=== PATIENT | male | born 1945 | race Caucasian/White ===

== ENCOUNTER 2017-08-10 12:04 | Outpatient (CLI) | payer OTHER, MEDICARE ==
[2017-08-10 13:50] LABS: #Eosinphils 0.1 thou/uL (0.0-0.7); #Lymphocytes 1.9 thou/uL (1.20-3.40); #Monocytes 0.5 thou/uL (0.11-0.59); #Neutrophils 3.1 thou/uL (1.40-6.50); %Basophils 0.7 % (0.0-1.0); %Eosinophils 2.4 % (0.0-10.0); %Lymphocytes 32.9 % (21.0-51.0); Bilirubin Negative (Negative); Blood, Urine Negative (Negative); Clarity CLOUDY (Clear); Glucose, Urine (Dipstick) Negative (Negative); Leukocyte Negative (Negative); Mean Corpuscular HGB CONC 35.7 g/dL (32.0-36.0); Mean Corpuscular Hemoglobin 33.1 pg (27.0-31.0); Mean Corpuscular Volume 92.6 fl (80.0-94.0); Mean Platelet Volume 7.2 fL (7.4-10.4); Nitrite Negative (Negative); Platelet Count 202 thou/uL (130-400); Protein, Urine (Dipstick) Negative (Neg-Trace); RBC Distribution Width 12.4 % (11.5-14.5); Red Blood Cell (RBC) Count 4.55 mill/uL (4.70-6.10); Urobilinogen 0.2 mg/dL (0.2-1.0); White Blood Cell (WBC) Count 5.6 thou/uL (4.8-10.8)
[2017-08-10 13:53] LABS: Bacteria/HPF None Seen HPF (None Seen); Hyaline Casts/LPF 0-3 HYALINE CAST LPF (0-3 Hyaline); Pathc Cast-AUWi Flag 0.29 (0-2.49); RBC/HPF 0-3 HPF (0-3); Squamous Epithelial None Seen HPF (0-3); WBC/HPF None Seen HPF (0-3)
[2017-08-10 13:56] LABS: Prothrombin Time 13.8 SEC (12.0-14.7)
[2017-08-10 14:23] LABS: Anion Gap 12 mmol/L (10-20); BUN (Urea Nitrogen) 18 mg/dL (8.4-25.7); Calc. Creatinine Clearance 0 mL/min (70-130); Calcium 9.7 mg/dL (7.8-10.44); Carbon Dioxide 26 mmol/L (23-31); Chloride 104 mmol/L (98-107); Estimated GFR-MDRD 87; Glucose 126 mg/dL (80-115); Potassium 4.1 mmol/L (3.5-5.1); Sodium 138 mmol/L (136-145)
== END 2017-08-10 12:05 | disposition home or self-care (01) ==
LOC: LABBT 12:04
PROVIDERS: ATTEND Orthopaedic Surgery
DX: Z01.818 Encounter for other preprocedural examination (principal); M17.11 Unilateral primary osteoarthritis, right knee
CPT/HCPCS: 80048; 81001; 85025; 85610; 87081; 93005; 93010

== ENCOUNTER 2017-08-10 12:30 | Inpatient (IN) | payer OTHER, MEDICARE ==
[2017-08-23] MEDS ORDERED: CEFAZOLIN/Water 2 GM/20 ML SYRINGE ONE (05:59)
[2017-08-23] MEDS ORDERED: Sodium Chloride 0.9% 100 ML ONE (05:59)
[2017-08-23] MEDS ORDERED: Midazolam HCl 2 mg/2 ml Vial ONE (06:17)
[2017-08-23] MEDS ORDERED: Fentanyl 100 MCG/2 ML VIAL ONE ×2 (06:17→09:16)
[2017-08-23] MEDS ORDERED: Bupivacaine 0.25% HCL 30 ML VIAL ONE (06:48)
[2017-08-23] MEDS ORDERED: Ropivacaine 0.5% HCl/PF (150 MG/30 ML VIAL) ONE (06:48)
[2017-08-23] MEDS ORDERED: Ondansetron HCl/PF 4 MG/2 ML Vial IVP PRN ×4 (07:09→09:10)
[2017-08-23] MEDS ORDERED: Promethazine HCl 25 MG/ML VIAL IM PRN ×4 (07:09→09:10)
[2017-08-23] MEDS ORDERED: Bupivacaine 0.5% 50 ML in Sodium Chloride 0.9% 50 ML NERVE BLCK SCH (07:09)
[2017-08-23] MEDS ORDERED: traMADol HCl 50 MG TAB PO PRN ×3 (07:09→09:10)
[2017-08-23] MEDS ORDERED: Zolpidem Tartrate 5 MG TAB PO PRN ×2 (07:09→09:10)
[2017-08-23] MEDS ORDERED: Fentanyl 100 MCG/2 ML VIAL IV PRN (07:09)
[2017-08-23] MEDS ORDERED: HYDROcodone/Acetaminophen 10/325 mg Tablet PO PRN ×2 (07:09)
[2017-08-23] MEDS ORDERED: Promethazine HCl 25 MG/ML VIAL SLOW IVP PRN ×2 (07:41→09:02)
[2017-08-23] MEDS ORDERED: Bupivacaine HCl 0.5%/Epinephrine 1:200,000/PF 30 ml Vial ONE (07:56)
[2017-08-23] MEDS ORDERED: Acetaminophen 325 MG TAB PO PRN (09:10)
[2017-08-23] MEDS ORDERED: diphenhydrAMINE 25 MG CAP PO PRN (09:10)
[2017-08-23] MEDS ORDERED: Tranexamic Acid 1,000 MG in Sodium Chloride 0.9% 100 ML IVPB SCH (09:15)
--- NOTE | 2017-08-23 09:33 | OP ---
DATE OF PROCEDURE: 08/23/2017. PREOPERATIVE DIAGNOSIS: Right knee osteoarthrosis. POSTOPERATIVE DIAGNOSIS: Right knee osteoarthrosis. PROCEDURE PERFORMED: Right total knee replacement using [employer] pinless navigation. SURGEON: Dandre Goodrich M.D. TIRE RECAPPING MACHINE OPERATOR: Burt Fowler PA-C. BLOOD LOSS: Minimal. COMPLICATIONS: None. ANESTHESIA: He had a general anesthetic as well as a preoperative block. IMPLANTS: To the right knee is [employer] total knee system. The femur was a size 6 cruciate retaining. The tibial baseplate was a size 5 universal tibial baseplate. We used a 5 x 9 mm CS X3 tibial poly and an asymmetric 29 x 9 X3 patella. CONDITION: He did go to the recovery room in stable condition. INDICATIONS: A 71-year-old male who comes in complaining of right knee pain that has not been respon sive to nonoperative treatment. At this time, he opted to have surgery. PROCEDURE IN DETAIL: After all appropriate consent forms were explained and signed, the patient was taken back to the Operating Room and at this time was given general anesthetic. Once the level of an esthesia was appropriate, a well-padded tourniquet was placed on the right leg and the leg was then p repped and draped in standard surgical fashion. The limb was exsanguinated and tourniquet taken up t o 300 mmHg. Midline incision was made with a 10 blade down through the skin and subcutaneous tissue. Bovie electrocautery was used to coagulate any brisk venous bleeding. A new blade was used to make a medial parapatellar arthrotomy. Small subperiosteal release was performed medially and excess fat pad was removed. The knee was flexed up to gain access to the femur. The femur was navigated and d istal femoral resection was made. Epicondylar access was used to align our sizing jig and this was p inned in place. We sized our femur to be a size 6 cruciate retaining, 4:1 cutting block was applied and pinned. Anterior and posterior chamfer cuts were then made. We navigated out our proximal tibia and made our proximal tibial resection. Spreaders were used to remove any posterior osteophytes off the back of the femur as well as remaining meniscal tissue. A long alignment jl was then used to a chieve correct rotation of our tibial baseplate and a size 5 universal tibial baseplate was chosen. This was pinned in place. We trialed the polyethylene and a 5 x 9 mm CS X3 tibial polyethylene gave us full extension and good stability throughout range of motion. Two towel clips and a saw were used to cut our patella. Three lug nuts were drilled and asymmetric 29 x 9 X3 patella was trialed which sat nicely in the trochlear groove. We then drilled our femur and punched our tibia. All components were removed. The knee was thoroughly irrigated and dried. Cement was mixed into the cement gun on the back table. Components were then placed. The knee was held out in full extension until the ngozi ent had dried. All excess bone cement was removed. Multiple #2 Vicryl stitches as well as a Quill w as used to close our extensor mechanism. 0 Quill followed by a running Monoderm was then used to arron se the skin. Surgicel glue was then used on the skin. Once this had dried, soft tissue dressing was applied to the limb, tourniquet was let down, and the toes pinked up nicely. The patient was then a wakened and taken to the Recovery Room in stable condition. All counts were correct at the end of e case. The patient did receive preoperative IV antibiotics. The patient was injected with Exparel for postoperative pain relief.
[2017-08-23] MEDS ORDERED: Ketorolac Tromethamine 30 MG/ML VIAL ONE (10:21)
[2017-08-23] MEDS ORDERED: Dexamethasone 20 MG/5 ML VIAL ONE (10:52)
[2017-08-23] MEDS ORDERED: Ondansetron HCl/PF 4 MG/2 ML Vial ONE (10:52)
[2017-08-23] MEDS ORDERED: PHENYLEPHRINE-NS 100 MCG/ML 10 ML SYRINGE ONE (10:52)
[2017-08-23] MEDS ORDERED: PROPOFOL 200 MG/20 ML VIAL ONE (10:52)
[2017-08-23] MEDS ORDERED: Ketorolac Tromethamine 30 MG/ML VIAL IVP SCH (12:00)
[2017-08-23] MEDS: Sodium Chloride 0.9% 1,000 ML IV SCH ×2 (12:15→17:23)
[2017-08-23] MEDS ORDERED: Tamsulosin HCl 0.4 MG CAP PO SCH (14:30)
[2017-08-23] MEDS: Ketorolac Tromethamine 30 MG/ML VIAL IVP SCH ×2 (14:34→20:00)
--- NOTE | 2017-08-23 14:43 | PDOC.PN ---
- Subjective Encounter Start Date: 08/23/17 Encounter Start Time: 13:00 Subjective: no sob or chest pain -: has trouble passing urine -: this has happened before and he has taken flomax - Objective MAR Reviewed: Yes Vital Signs & Weight: Vital Signs (12 hours) Temp Pulse Resp BP Pulse Ox 08/23/17 11:44 98.1 F 75 22 H 100 08/23/17 10:45 98.1 F 75 22 H 156/89 H 100 Weight Weight 155 lb Phys Exam - Physical Examination HEENT: PERRLA, moist MMs Neck: no JVD, supple Respiratory: no wheezing, no rales Cardiovascular: RRR, no significant murmur Gastrointestinal: soft, non-tender, positive bowel sounds Musculoskeletal: pulses present right knee in dressing Neurological: non-focal, moves all 4 limbs Psychiatric: normal affect, A&O x 3 Dx/Plan (1) Status post total knee replacement, right Code(s): Z96.651 - PRESENCE OF RIGHT ARTIFICIAL KNEE JOINT Status: Acute (2) BPH (benign prostatic hyperplasia) Code(s): N40.0 - BENIGN PROSTATIC HYPERPLASIA WITHOUT LOWER URINRY TRACT SYMP Status: Chronic Qualifiers: Lower urinary tract symptom presence: symptoms present Lower urinary tract symptom detail: post-void dribbling Qualified Code(s): N40.1 - Benign prostatic hyperplasia with lower urinary tract symptoms; N39.43 - Post-void dribbling; N39.43 - Post-void dribbling - Plan add flomax bid, needs outpt urology appt -: to continue asp bid for dvt prophylaxis -: oral iron, labs in am -: marcaine nerve block, fentanyl and toradol prn -: will f/u * . Review of Systems - Medications/Allergies Allergies/Adverse Reactions: Allergies Allergy/AdvReac Type Severity Reaction Status Date / Time No Known Allergies Allergy Unverified 08/10/17 12:27 Medications: Current Medications Acetaminophen (Tylenol) 650 mg PO Q4H PRN PRN Reason: CAB[place]ERO/ T > 101F; Mild Pain (1-3) Hydrocodone Bitart/Acetaminophen ([place] 10/325) 1 tab PO Q4H PRN PRN Reason: Pain (1-3) Hydrocodone Bitart/Acetaminophen ([place] 10/325) 2 tab PO Q4H PRN PRN Reason: PAIN (4-6) Aspirin (Ecotrin) 81 mg PO BID [facility] Calcium/Vitamin D (Caltrate 600 + Vit D) 1 tab PO DAILY [facility] Cefazolin Sodium (Ancef) 2 gm SLOW IVP 0800,1600,2359 [facility] Stop: 08/24/17 00:00 Diphenhydramine HCl (Benadryl) 25 mg PO Q6H PRN PRN Reason: Itching Fentanyl (Sublimaze) 50 mcg IV Q1H PRN PRN Reason: BREAKTHROUGH PAIN Ferrous Gluconate (Fergon) 324 mg PO BID[facility] Bupivacaine HCl 50 ml/ Sodium (Chloride) 100 mls @ 0 mls/hr NERVE BLCK INF [facility] PRN Reason: As Directed Sodium Chloride (Normal Saline 0.9%) 1,000 mls @ 100 mls/hr IV .Q10H [facility] Last Admin: 08/23/17 12:15 Dose: Not Given Vancomycin HCl 1.5 gm/ Sodium (Chloride) 300 mls @ 200 mls/hr IVPB 2000 [facility] Stop: 08/23/17 21:29 Iron/Minerals/Multivitamins (Theragran M) 1 tab PO DAILY [facility] Ketorolac Tromethamine (Toradol) 15 mg IVP 0300,0900,1500,2100 [facility] Stop: 08/25/17 09:01 Last Admin: 08/23/17 14:34 Dose: 15 mg Ondansetron HCl (Zofran) 4 mg IVP Q6H PRN PRN Reason: Nausea/Vomiting Pantoprazole Sodium (Protonix) 40 mg PO DAILY [facility] Promethazine HCl (Phenergan) 12.5 mg IM Q4H PRN PRN Reason: Nausea/Vomiting Senna/Docusate Sodium (Senokot S) 2 tab PO BID [facility] Sodium Chloride (Flush - Normal Saline) 10 ml IVF Q12HR [facility] Last Admin: 08/23/17 12:15 Dose: Not Given Sodium Chloride (Flush - Normal Saline) 10 ml IVF PRN PRN PRN Reason: Saline Flush Tamsulosin HCl (Flomax) 0.4 mg PO NOW [facility] Stop: 08/23/17 16:00 Last Admin: 08/23/17 14:34 Dose: 0.4 mg Tamsulosin HCl (Flomax) 0.4 mg PO DAILY [facility] Tramadol HCl (Ultram) 50 mg PO Q6H PRN PRN Reason: Mild Pain (1-3) Tramadol HCl (Ultram) 100 mg PO Q6H PRN PRN Reason: Moderate Pain 4-6 Zolpidem Tartrate (Ambien) 5 mg PO HSPRN PRN PRN Reason: Insomnia
[2017-08-23] MEDS: CEFAZOLIN/Water 2 GM/20 ML SYRINGE SLOW IVP SCH (17:18)
[2017-08-23] MEDS ORDERED: Vancomycin HCl 1.5 GM in Sodium Chloride 0.9% 250 ML 300 ML IVPB SCH (20:00)
[2017-08-23] MEDS: Aspirin 81 mg Enteric Coated Tablet PO SCH (20:00)
[2017-08-24] MEDS: CEFAZOLIN/Water 2 GM/20 ML SYRINGE SLOW IVP SCH (00:26)
[2017-08-24] MEDS: Ketorolac Tromethamine 30 MG/ML VIAL IVP SCH ×3 (03:45→15:10)
[2017-08-24] MEDS: Sodium Chloride 0.9% 1,000 ML IV SCH ×2 (03:52→15:20)
[2017-08-24 04:28] LABS: Hemoglobin 11.7 g/dL (14.0-18.0); Mean Corpuscular HGB CONC 33.7 g/dL (32.0-36.0); Mean Corpuscular Hemoglobin 31.4 pg (27.0-31.0); Mean Corpuscular Volume 93.1 fl (80.0-94.0); Mean Platelet Volume 7.3 fL (7.4-10.4); Platelet Count 169 thou/uL (130-400); RBC Distribution Width 12.4 % (11.5-14.5); Red Blood Cell (RBC) Count 3.71 mill/uL (4.70-6.10); White Blood Cell (WBC) Count 11.3 thou/uL (4.8-10.8)
[2017-08-24 04:49] LABS: Anion Gap 10 mmol/L (10-20); BUN (Urea Nitrogen) 22 mg/dL (8.4-25.7); Calc. Creatinine Clearance 91 mL/min (70-130); Calcium 8.3 mg/dL (7.8-10.44); Carbon Dioxide 23 mmol/L (23-31); Chloride 111 mmol/L (98-107); Estimated GFR-MDRD Greater than 90; Glucose 117 mg/dL (80-115); Potassium 3.7 mmol/L (3.5-5.1); Sodium 140 mmol/L (136-145)
[2017-08-24] MEDS: Aspirin 81 mg Enteric Coated Tablet PO SCH (07:49)
[2017-08-24] MEDS ORDERED: Ferrous Gluconate 324 MG TAB PO SCH (08:00)
[2017-08-24 08:54] VITALS: TEMP 97.7
[2017-08-24] MEDS ORDERED: Tamsulosin HCl 0.4 MG CAP PO SCH (09:00)
[2017-08-24] MEDS ORDERED: Calcium Carbonate + Vit D 1 TAB PO SCH (09:00)
[2017-08-24] MEDS ORDERED: Multivitamin W/ Minerals 1 TAB PO SCH (09:00)
[2017-08-24] MEDS ORDERED: Senokot S 8.6-50 MG TAB PO SCH (09:00)
[2017-08-24 10:38] VITALS: BMI 21.7
--- NOTE | 2017-08-24 11:30 | PDOC.PN ---
- Subjective Encounter Start Date: 08/24/17 Encounter Start Time: 08:20 Subjective: no sob -: has pickens -: pain is better in the knee - Objective MAR Reviewed: Yes Vital Signs & Weight: Vital Signs (12 hours) Temp Pulse Resp BP BP BP Pulse Ox 08/24/17 09:53 96/62 08/24/17 08:52 97.7 F 76 20 89/50 L 95 08/24/17 08:00 98.1 F 76 16 96 08/24/17 03:54 98.1 F 76 16 93/54 L 96 08/24/17 00:47 98.6 F 76 17 93/50 L 95 Weight Admit Weight 156 lb Weight 156 lb I&O: 08/23/17 08/24/17 08/25/17 06:59 06:59 06:59 Intake Total 1440 Output Total 400 Balance 1040 Result Diagrams: 08/24/17 03:27 08/24/17 03:27 Phys Exam - Physical Examination HEENT: PERRLA, moist MMs Neck: no JVD, supple Respiratory: no wheezing, no rales Cardiovascular: RRR, no significant murmur Gastrointestinal: soft, non-tender, positive bowel sounds Musculoskeletal: pulses present Neurological: non-focal, moves all 4 limbs Psychiatric: normal affect, A&O x 3 Dx/Plan (1) Status post total knee replacement, right Code(s): Z96.651 - PRESENCE OF RIGHT ARTIFICIAL KNEE JOINT Status: Acute (2) BPH (benign prostatic hyperplasia) Code(s): N40.0 - BENIGN PROSTATIC HYPERPLASIA WITHOUT LOWER URINRY TRACT SYMP Status: Chronic Qualifiers: Lower urinary tract symptom presence: symptoms present Lower urinary tract symptom detail: post-void dribbling Qualified Code(s): N40.1 - Benign prostatic hyperplasia with lower urinary tract symptoms; N39.43 - Post-void dribbling; N39.43 - Post-void dribbling - Plan remove pickens, continue flomax -: dc plan per ortho advice -: has amb 350ft with rw -: hemostable -: needs outpt urology appt * . Review of Systems - Medications/Allergies Allergies/Adverse Reactions: Allergies Allergy/AdvReac Type Severity Reaction Status Date / Time No Known Allergies Allergy Unverified 08/10/17 12:27 Medications: Current Medications Acetaminophen (Tylenol) 650 mg PO Q4H PRN PRN Reason: CABALLERO/ T > 101F; Mild Pain (1-3) Hydrocodone Bitart/Acetaminophen ([place] 10/325) 1 tab PO Q4H PRN PRN Reason: Pain (1-3) Hydrocodone Bitart/Acetaminophen ([place] 10/325) 2 tab PO Q4H PRN PRN Reason: PAIN (4-6) Aspirin (Ecotrin) 81 mg PO BID [facility] Last Admin: 08/24/17 07:49 Dose: 81 mg Calcium/Vitamin D (Caltrate 600 + Vit D) 1 tab PO DAILY [facility] Last Admin: 08/24/17 07:50 Dose: 1 tab Diphenhydramine HCl (Benadryl) 25 mg PO Q6H PRN PRN Reason: Itching Fentanyl (Sublimaze) 50 mcg IV Q1H PRN PRN Reason: BREAKTHROUGH PAIN Ferrous Gluconate (Fergon) 324 mg PO BID[facility] Last Admin: 08/24/17 07:49 Dose: 324 mg Bupivacaine HCl 50 ml/ Sodium (Chloride) 100 mls @ 0 mls/hr NERVE BLCK INF [facility] PRN Reason: As Directed Last Admin: 08/23/17 22:06 Dose: 100 mls Sodium Chloride (Normal Saline 0.9%) 1,000 mls @ 100 mls/hr IV .Q10H [facility] Last Admin: 08/24/17 03:52 Dose: 1,000 mls Iron/Minerals/Multivitamins (Theragran M) 1 tab PO DAILY [facility] Last Admin: 08/24/17 07:51 Dose: 1 tab Ketorolac Tromethamine (Toradol) 15 mg IVP 0300,0900,1500,2100 [facility] Stop: 08/25/17 09:01 Last Admin: 08/24/17 07:52 Dose: 15 mg Ondansetron HCl (Zofran) 4 mg IVP Q6H PRN PRN Reason: Nausea/Vomiting Pantoprazole Sodium (Protonix) 40 mg PO DAILY [facility] Last Admin: 08/24/17 07:51 Dose: 40 mg Promethazine HCl (Phenergan) 12.5 mg IM Q4H PRN PRN Reason: Nausea/Vomiting Senna/Docusate Sodium (Senokot S) 2 tab PO BID [facility] Last Admin: 08/24/17 07:51 Dose: 2 tab Sodium Chloride (Flush - Normal Saline) 10 ml IVF Q12HR [facility] Last Admin: 08/24/17 08:27 Dose: Not Given Sodium Chloride (Flush - Normal Saline) 10 ml IVF PRN PRN PRN Reason: Saline Flush Tamsulosin HCl (Flomax) 0.4 mg PO DAILY [facility] Last Admin: 08/24/17 07:51 Dose: 0.4 mg Tramadol HCl (Ultram) 50 mg PO Q6H PRN PRN Reason: Mild Pain (1-3) Tramadol HCl (Ultram) 100 mg PO Q6H PRN PRN Reason: Moderate Pain 4-6 Zolpidem Tartrate (Ambien) 5 mg PO HSPRN PRN PRN Reason: Insomnia
[2017-08-24] MEDS ORDERED: Ropivacaine 0.2% 550 ML 550 ML NERVE BLCK SCH (11:41)
[2017-08-24 16:41] VITALS: BP 96/56
--- NOTE | 2017-08-25 02:18 | DIS ---
DATE OF ADMISSION: 08/23/2017 DATE OF DISCHARGE: 08/24/2017 DISCHARGE DISPOSITION: To home. PRIMARY DISCHARGE DIAGNOSES: Status post right total knee replacement, benign prostatic hypertrophy. PROCEDURES DONE DURING HOSPITALIZATION: The patient has had a right total knee replacement done by Ashley Goodrich on 08/23/2017. Postop H and H 11 and 34, platelet count 169,000, BUN 22, creatinine 0.7. DISCHARGE MEDICATIONS: Aspirin 81 mg p.o. twice daily for DVT prophylaxis post-knee replacement, Siva max 0.4 mg daily. ALLERGIES: No known drug allergies. DISCHARGE PLAN: Patient is to follow up with Dr. Goodrich as advised and primary care physician in 1 wee k. BRIEF COURSE DURING HOSPITALIZATION: Patient initially got admitted on the for elective right t otal knee replacement. He has had this done by Dr. Goodrich. Postop [facility] physicians were consulted for comanagement of medical issues. The patient has had some urinary retention with history of benign p rostatic hypertrophy. He has not had a chance to follow up with the urologist on the outside. He wa s placed on Flomax and had a Ambriz catheter put in postop. Likely he will go home without a Ambriz ca theter after bladder training and removal. He needs to continue Flomax and follow up with outpatient urology. He is otherwise hemodynamically stable and has ambulated nearly 350 feet with physical the rapy postop. Please see a [id number].
== END 2017-08-24 16:39 | disposition home or self-care (01) | DRG 470 ==
LOC: SJJU 08-23 05:35
PROVIDERS: ADMIT Orthopaedic Surgery; ATTEND Orthopaedic Surgery
PROC: 0SRC0J9 Replacement of Right Knee Joint with Synthetic Substitute, Cemented, Open Approach (ICD-10-PCS; principal; 2017-08-23)
DX: M17.11 Unilateral primary osteoarthritis, right knee (principal); N40.1 Benign prostatic hyperplasia with lower urinary tract symptoms; N39.43 Post-void dribbling
CPT/HCPCS: 36415; 80048; 85027; A4216; A4306; C1713; C1776; G8978-GP-CL; G8979-GP-CJ; J0670; J1100; J1885; J2250; J2405; J2704; J2795; J3010; J3370; J3490; J7050; S0020

== ENCOUNTER 2017-08-17 10:51 | Outpatient (CLI) | payer OTHER | END 2017-08-17 10:52 | disposition home or self-care (01) | LOC: LABBT 10:51 | PROVIDERS: ATTEND Orthopaedic Surgery | DX: Z01.818 Encounter for other preprocedural examination (principal); M17.11 Unilateral primary osteoarthritis, right knee | CPT/HCPCS: 86850; 86900; 86901 ==

== ENCOUNTER 2018-07-26 12:32 | Outpatient (CLI) | payer OTHER ==
--- NOTE | 2018-07-26 14:28 | RAD ---
SUPINE ABDOMEN: 07/26/18 HISTORY: Kidney stones. Bladder stone. No comparison. Bowel content obscure both kidneys. There are small calcifications overlying both renal outlines cons istent with numerous bilateral renal calculi. No definite calcification overlying the bladder, althou gh prominent stool in the rectum obscures detail. Bowel gas pattern unremarkable. IMPRESSION: Evidence of numerous small bilateral renal calculi. POS: OFF
--- NOTE | 2018-07-26 14:30 | ULT ---
RENAL ULTRASOUND: 07/26/18 INDICATIONS: Bladder stone, kidney stones. Right kidney measures 9.4 cm in length. Left kidney measures 11.9 cm in length. No evidence of hydronephrosis. There are echogenic foci seen in both kidneys consistent with multiple bilateral renal calculi. This corresponds to plain film findings. Urinary bladder is mildly distended. There is evidence of mild bladder wall thickening. There is a ca lculus in the floor of the bladder which exhibits posterior shadowing. IMPRESSION: Numerous bilateral renal calculi. A bladder calculus is identified on ultrasound. No hydronephrosis. POS: OFF
== END 2018-07-26 12:33 | disposition home or self-care (01) ==
LOC: BICULT 12:32
PROVIDERS: ATTEND Urology
DX: N20.0 Calculus of kidney (principal); N40.1 Benign prostatic hyperplasia with lower urinary tract symptoms; R33.8 Other retention of urine; N21.0 Calculus in bladder; N13.8 Other obstructive and reflux uropathy
CPT/HCPCS: 36415; 74018; 76770; 80048; 81001; 82365; 83970; 84550; 87086; 88300

== ENCOUNTER 2018-10-19 13:21 | Outpatient (CLI) | payer OTHER ==
--- NOTE | 2018-10-19 15:21 | CT ---
CT ABDOMEN AND PELVIS WITHOUT CONTRAST: DATE: 10/19/2018. PROVIDED CLINICAL HISTORY: Renal calculi. FINDINGS: Comparison is made with the CT examination from [facility] 01/11/2018. The visualized lung bases are free of significant opacity. Bilateral nonobstructing renal calculi are redemonstrated, largest on the left measuring about 5 mm a nd largest on the right measuring about 5-6 mm. The number and size of calculi appear grossly simila r to the prior study. Several bladder calculi are demonstrate right of midline dependently, the larg est measuring about 5 mm. Bladder calculi were also seen on the prior study. Stable-appearing hepatic cysts. The solid abdominal organs are suboptimally evaluated in the absence of IV contrast material but demonstrate an otherwise unremarkable unenhanced CT appearance. No bowel dilatation, inflammatory fat stranding, free fluid, or lymph node enlargement apparent. Sig moid colonic diverticulosis is noted. Small fat-containing left inguinal hernia. The osseous structures demonstrate no concerning lytic or blastic lesions. Lower lumbar spine degene rative changes are seen. IMPRESSION: 1. Bilateral nonobstructing renal calculi and bladder calculi as described. 2. Other chronic findings as above. POS: TPC
== END 2018-10-19 13:22 | disposition home or self-care (01) ==
LOC: BICCT 13:21
PROVIDERS: ATTEND Urology
DX: N20.0 Calculus of kidney (principal); N40.1 Benign prostatic hyperplasia with lower urinary tract symptoms; R33.8 Other retention of urine; N21.0 Calculus in bladder; N13.8 Other obstructive and reflux uropathy; K76.89 Other specified diseases of liver; K57.30 Diverticulosis of large intestine without perforation or abscess without bleeding; K40.90 Unilateral inguinal hernia, without obstruction or gangrene, not specified as recurrent; M47.816 Spondylosis without myelopathy or radiculopathy, lumbar region
CPT/HCPCS: 74176